=== PATIENT | female | born 1940 | race African-American/Black ===

== ENCOUNTER 2017-01-10 11:43 | Outpatient (CLI) | payer MEDICARE ==
[2016-04-19 12:49] VITALS: BMI 32.4
[~2017-01-10 11:43] MED LIST: DILATRATE-SR40 MG PO; EPITOL200 MG PO; FERROUS SULFAT325 MG PO; FLORAJEN3 CAPS460 MG PO; FUROSEMIDE40 MG PO; HYDRALAZINE HC100 MG PO; KEFLEX250 MG PO; MULTIPLE VITAMI1 TA1 PO; NOVOLOG MIX 70/10 ML SQ; OMEPRAZOLE20 M1 PO; PRAVACHOL20 MG PO; SYNTHROID50 MCG PO; TIAZAC/CARDIZE240 M1 PO; TRADJENTA5 MG PO; TUMS500 MG PO; ULTRAM50 MG PO
== END 2017-01-10 11:55 ==
LOC: D.MAMMO 11:43
DX: Z12.31 Encounter for screening mammogram for malignant neoplasm of breast (principal)

== ENCOUNTER 2017-07-14 18:02 | Emergency (ER) | payer MEDICARE ==
[2016-04-19 12:49] VITALS: BMI 32.4
[2017-07-14 18:30] LABS: BASOPHILS 0.2 % (0-2); EOSINOPHILS 0.7 % (0-7); HEMATOCRIT 34.3 % (36.0-48.0); HEMOGLOBIN 11.4 g/dL (12-16); IMMATURE GRANULOCYTES 0.3 % (0-5); LYMPHOCYTES 14.2 % (15-50); MCH 29.5 pg (26.0-34.0); MCHC 33.2 g/dL (31.0-37.0); MCV 88.6 fL (80.0-100.0); MEAN PLATELET VOLUME 9.9 fL (7.4-10.4); MONOCYTES 7.7 % (2-11); NEUTROPHILS 76.9 % (40-80); RBC 3.87 10x6/uL (4.00-5.40); RDW 13.7 % (11.5-14.5); WBC 10.1 10x3/uL (4.8-10.8)
[2017-07-14 18:31] LABS: PLATELET COUNT 174 10x3/uL (130-400)
[2017-07-14 18:46] LABS: ANION GAP 11.9 mmol/L (8-16); BILIRUBIN - TOTAL 0.2 mg/dL (0.2-1.3); CALCIUM 9.1 mg/dL (8.5-10.1); CARBON DIOXIDE 28.2 mmol/L (21.0-32.0); CREATININE - SERUM 3.7 mg/dL (0.6-1.3); POTASSIUM - SERUM 5.1 mmol/L (3.5-5.1)
[2017-07-14 18:59] LABS: APPEARANCE CLEAR (CLEAR); BILIRUBIN NEGATIVE (NEGATIVE); COLOR YELLOW (YELLOW); GLUCOSE 50 mg/dL (NEGATIVE); KETONE NEGATIVE (NEGATIVE); NITRITE NEGATIVE (NEGATIVE); PROTEIN NEGATIVE (NEGATIVE); UROBILINOGEN NORMAL (NORMAL)
== END 2017-07-14 21:40 | disposition home or self-care (01) ==
LOC: D.ER 18:02
PROVIDERS: Family Medicine
DX: M25.562 Pain in left knee (principal); M54.5 Low back pain; E11.9 Type 2 diabetes mellitus without complications; Z79.4 Long term (current) use of insulin; I12.9 Hypertensive chronic kidney disease with stage 1 through stage 4 chronic kidney disease, or unspecified chronic kidney disease; N18.9 Chronic kidney disease, unspecified

== ENCOUNTER 2017-08-25 14:41 | Emergency (ER) | payer MEDICARE ==
[2016-04-19 12:49] VITALS: BMI 32.4
[2017-08-25 16:10] LABS: BASOPHILS 0.2 % (0-2); EOSINOPHILS 1.4 % (0-7); HEMATOCRIT 32.7 % (36.0-48.0); HEMOGLOBIN 10.8 g/dL (12-16); IMMATURE GRANULOCYTES 0.6 % (0-5); LYMPHOCYTES 12.5 % (15-50); MCH 28.9 pg (26.0-34.0); MCV 87.4 fL (80.0-100.0); MEAN PLATELET VOLUME 8.8 fL (7.4-10.4); MONOCYTES 7.2 % (2-11); NEUTROPHILS 78.1 % (40-80); RBC 3.74 10x6/uL (4.00-5.40); RDW 13.6 % (11.5-14.5); WBC 10.8 10x3/uL (4.8-10.8)
[2017-08-25 16:11] LABS: PLATELET COUNT 225 10x3/uL (130-400)
[2017-08-25 16:32] LABS: ALBUMIN 2.9 g/dL (3.4-5.0); ANION GAP 10.1 mmol/L (8-16); BILIRUBIN - TOTAL 0.29 mg/dL (0.2-1.3); CALCIUM 9.1 mg/dL (8.5-10.1); CARBON DIOXIDE 29.7 mmol/L (21.0-32.0); CREATININE - SERUM 3.6 mg/dL (0.6-1.3); POTASSIUM - SERUM 4.8 mmol/L (3.5-5.1); PROTEIN - SERUM 7.4 g/dL (6.4-8.2)
== END 2017-08-25 17:00 | disposition home or self-care (01) ==
LOC: D.ER 14:41
PROVIDERS: Family Medicine
DX: M79.661 Pain in right lower leg (principal); I87.2 Venous insufficiency (chronic) (peripheral); E11.9 Type 2 diabetes mellitus without complications; Z79.4 Long term (current) use of insulin; I12.9 Hypertensive chronic kidney disease with stage 1 through stage 4 chronic kidney disease, or unspecified chronic kidney disease; N18.9 Chronic kidney disease, unspecified

== ENCOUNTER 2018-01-19 08:58 | Day surgery (SDC) | payer MEDICARE ==
[~2018-01-19] VITALS: Ht 167.6 cm; Wt 86.6 kg
[2018-01-19 09:38] LABS: BASOPHILS 0.2 % (0-2); EOSINOPHILS 2.5 % (0-7); HEMATOCRIT 30.5 % (36.0-48.0); HEMOGLOBIN 10.1 g/dL (12-16); IMMATURE GRANULOCYTES 0.4 % (0-5); LYMPHOCYTES 11.7 % (15-50); MCH 29.2 pg (26.0-34.0); MCHC 33.1 g/dL (31.0-37.0); MCV 88.2 fL (80.0-100.0); MEAN PLATELET VOLUME 9.1 fL (7.4-10.4); MONOCYTES 9.7 % (2-11); NEUTROPHILS 75.5 % (40-80); RBC 3.46 10x6/uL (4.00-5.40); RDW 14.5 % (11.5-14.5); WBC 9.3 10x3/uL (4.8-10.8)
[2018-01-19 09:42] LABS: PLATELET COUNT 140 10x3/uL (130-400)
[2018-01-19 09:55] LABS: ANION GAP 15.8 mmol/L (8-16); CALCIUM 8.7 mg/dL (8.5-10.1); CARBON DIOXIDE 26.8 mmol/L (21.0-32.0); CREATININE - SERUM 4.5 mg/dL (0.6-1.3); POTASSIUM - SERUM 4.6 mmol/L (3.5-5.1)
[2018-01-19 10:58] LABS: APTT 29.1 SECONDS (22.8-39.4); INR 1.11 (0.85-1.17); PROTIME 13.9 SECONDS (11.6-15.0)
[2018-01-19] MEDS ORDERED: VITAMIN D250000 UNIT PO (12:24)
[2018-01-19] MEDS ORDERED: CATAPRES0.1 MG PO (12:24)
[2018-01-19] MEDS ORDERED: LASIX40 MG PO (12:25)
[2018-01-19 12:34] VITALS: BP 145/52; Ht 167.6 cm; Wt 86.6 kg
== END 2018-01-19 14:45 | disposition home or self-care (01) ==
LOC: D.OPS 08:58
PROVIDERS: Surgery
DX: N18.5 Chronic kidney disease, stage 5 (principal); Z01.810 Encounter for preprocedural cardiovascular examination; Z01.811 Encounter for preprocedural respiratory examination; Z01.812 Encounter for preprocedural laboratory examination; Z53.9 Procedure and treatment not carried out, unspecified reason

== ENCOUNTER 2018-01-26 08:16 | Day surgery (SDC) | payer MEDICARE ==
[~2018-01-26] VITALS: Ht 167.6 cm; Wt 83.0 kg
--- NOTE | ~2018-01-26 | OP ---
PATIENT NAME: HONG MORGAN MEDICAL RECORD: [id number] :42 LOCATION:D.[facility] ADMISSION DATE: SURGEON: CLIFF PORRAS MD DATE OF OPERATION: 01/26/2018 PREOPERATIVE DIAGNOSES: Chronic kidney disease V, diabetes and hypertension. PREOPERATIVE DIAGNOSES: Chronic kidney disease V, diabetes and hypertension. OPERATION PERFORMED: Implantation of a left upper arm loop PTFE AV graft. SURGEON: Cliff Porras MD ANESTHESIA: General per LMA plus regional block per TECHNICAL SERVICE ENGINEER. REFERRING PHYSICIAN: Dr. Leena Lou. PREOPERATIVE NOTE: Ms. Morgan is a very nice 77-year-old -[place] female who has worsening renal function as expected to require dialysis relatively soon. She had an AV fistula created in her left arm about a year ago, but it failed, and Dr. Lou has referred her back to me for implantation of an AV graft. She really does not have any vessels very suitable for creation of a fistula. She is right-handed. DESCRIPTION OF PROCEDURE: Under anesthesia in supine position, the patient was prepped and draped in a sterile manner. I applied nitroglycerin ointment and used a Fords drain as a proximal venous tourniquet, examined her with ultrasound and found the vessel to be the basilic vein in the upper half of the arm on the proximal brachial artery, so I went on with plans to implant a loop graft. A longitudinal incision was made over the medial aspect of the upper arm and the proximal brachial artery and basilic vein were exposed and controlled with Silastic loops. I chose a 6-mm diameter standard wall thickness Propaten graft and bevelled one end and prepared for arterial anastomosis. The artery was occluded with Silastic tapes. It was opened and flushed with heparinized saline and the anastomosis then performed into the graft to side of artery with running 6-0 Prolene. The graft was then placed in a very shallow subcutaneous tunnel, which passed distally and anteriorly and then back medially and superiorly until it was back in the original incision. It was shortened and beveled and anastomosed end-to-side to the vein in a similar manner. When the clamps and loops were released, excellent flow was immediately established within the fistula and hemostasis was excellent. The wound was irrigated with saline and then closed without the use of drain approximating subcutaneous tissues with interrupted inverted 3-0 Vicryl and skin of the longer incision was closed with a running 4-0 intracuticular Monocryl. The primary and the 2 counter incisions were then sealed with Dermabond glue and dressed with Maxorb Ag, Tegaderm and Cavilon skin prep. The patient was awakened and returned to the recovery room in stable condition with a functioning AV graft. Good continuous Doppler pulsatile flow was present within the brachial artery at the elbow and in the radial artery at the wrist. The patient will go home today with a prescription for tramadol. She can take 50 mg 1 to 2 p.o. every 4 hours p.r.n. pain and she will come back to see me in my office next week for her first visit, for followup. She will be given a OPERATIVE REPORT [id number] HONG MORGAN sllinh to wear this afternoon and this evening, but she is not to wear it after the anesthetic has worn off, certainly not after tomorrow morning and I want her to regain normal function by resuming fully normal activities as rapidly as possible. She will continue her diabetic renal diet, all of her same home meds, etc. She may shower and wash over her plastic waterproof dressings as desired as well. TRANSINT:[id number] Voice Confirmation ID: [id number] DOCUMENT ID: [id number] CLIFF PORRAS MD at 0847 CC: LEENA LOU [id number] DICTATION DATE: 01/26/18 1407 OPERATIONS SYSTEMS SPECIALIST: 01/26/18 1535 [facility] 01/26/18 [facility] [address] [place] [address]
[~2018-01-26 08:16] MED LIST changes: +CATAPRES0.1 MG PO; +LASIX40 MG PO; +VITAMIN D250000 UNIT PO
[2018-01-26 08:35] LABS: BASOPHILS 0.1 % (0-2); EOSINOPHILS 2.9 % (0-7); HEMATOCRIT 30.4 % (36.0-48.0); HEMOGLOBIN 9.9 g/dL (12-16); IMMATURE GRANULOCYTES 0.3 % (0-5); MCH 28.6 pg (26.0-34.0); MCHC 32.6 g/dL (31.0-37.0); MCV 87.9 fL (80.0-100.0); MEAN PLATELET VOLUME 9.6 fL (7.4-10.4); MONOCYTES 6.2 % (2-11); NEUTROPHILS 75.5 % (40-80); PLATELET COUNT 158 10x3/uL (130-400); RBC 3.46 10x6/uL (4.00-5.40); RDW 14.5 % (11.5-14.5); WBC 9.3 10x3/uL (4.8-10.8)
[2018-01-26 08:43] LABS: APTT 26.6 SECONDS (22.8-39.4); INR 1.06 (0.85-1.17); PROTIME 13.4 SECONDS (11.6-15.0)
[2018-01-26 08:49] LABS: ANION GAP 13.2 mmol/L (8-16); CARBON DIOXIDE 27.5 mmol/L (21.0-32.0); CREATININE - SERUM 4.4 mg/dL (0.6-1.3); POTASSIUM - SERUM 4.7 mmol/L (3.5-5.1)
[2018-01-26 10:36] VITALS: Ht 167.6 cm; Wt 83.0 kg
[2018-01-26] MEDS ORDERED: ULTRAM50 MG PO (13:54)
== END 2018-01-26 16:00 | disposition home or self-care (01) ==
LOC: D.OPS 08:16
PROVIDERS: Surgery
DX: E11.22 Type 2 diabetes mellitus with diabetic chronic kidney disease (principal); I12.0 Hypertensive chronic kidney disease with stage 5 chronic kidney disease or end stage renal disease; N18.5 Chronic kidney disease, stage 5; Z99.2 Dependence on renal dialysis; Z01.812 Encounter for preprocedural laboratory examination

== ENCOUNTER → 2018-11-15 13:34 | Outpatient (CLI) | payer MEDICARE ==
[2018-01-26 10:36] VITALS: BMI 29.6
== END | disposition home or self-care (01) ==
LOC: D.HCCARDIO 13:34
PROVIDERS: ATTEND Internal Medicine Cardiovascular Disease
DX: I34.0 Nonrheumatic mitral (valve) insufficiency (principal)

== ENCOUNTER 2019-03-22 09:37 | Day surgery (SDC) | payer MEDICARE ==
[~2019-03-22] VITALS: Ht 167.6 cm; Wt 81.2 kg
[2019-03-22 10:05] LABS: BASOPHILS 0.2 % (0-2); EOSINOPHILS 1.6 % (0-7); HEMOGLOBIN 10.3 g/dL (12-16); IMMATURE GRANULOCYTES 0.3 % (0-5); LYMPHOCYTES 15.1 % (15-50); MCH 31.3 pg (26.0-34.0); MCHC 34.3 g/dL (31.0-37.0); MCV 91.2 fL (80.0-100.0); MEAN PLATELET VOLUME 9.1 fL (7.4-10.4); MONOCYTES 7.9 % (2-11); NEUTROPHILS 74.9 % (40-80); PLATELET COUNT 161 10x3/uL (130-400); RBC 3.29 10x6/uL (4.00-5.40); RDW 13.4 % (11.5-14.5); WBC 9.3 10x3/uL (4.8-10.8)
[2019-03-22 10:17] LABS: ANION GAP 13.2 mmol/L (8-16); CALCIUM 8.9 mg/dL (8.5-10.1); CARBON DIOXIDE 30.7 mmol/L (21.0-32.0); CREATININE - SERUM 5.1 mg/dL (0.6-1.3); POTASSIUM - SERUM 3.9 mmol/L (3.5-5.1)
[2019-03-22 10:19] LABS: INR 1.03 (0.85-1.17)
[2019-03-22 12:43] VITALS: Ht 167.6 cm; Wt 81.2 kg
--- NOTE | 2019-03-22 17:25 | NUR ---
1636-REC'D FROM RR, AWAKE AND ALERT WITHOUT COMPLAINTS. VSS. LEFT HEMOSPLIT DRESSING CDI. IV PATENT TO RIGHT HAND AT K[facility]. FAMILY MEMBER AT BEDSIDE WITH CL IN EASY REACH.
--- NOTE | 2019-03-22 17:27 | NUR ---
1700-FULL LIQUID TRAY TO ROOM.VSS. NO COMPLAINTS.
--- NOTE | 2019-03-22 17:56 | NUR ---
1745-DISCHARGE CRITERIA MET. REVIEWED DISCHARGE INSTRUCTIONS WITH PT AND FAMILY MEMBER AT BEDSIDE.VERBALIZED UNDERSTANDING. ESCORTED OUT VIA W/C WITH FAMILY TO DRIVE HOME
--- NOTE | 2019-03-26 10:48 | OP ---
PATIENT NAME: HONG MORGAN MEDICAL RECORD: [id number] :42 LOCATION:D.[facility] ADMISSION DATE: SURGEON: CLIFF PORRAS MD DATE OF OPERATION: 03/22/2019 REFERRING PHYSICIANS: Dr. Leena Lou, Dr. Boucher, and Dr. Damon. PREOPERATIVE DIAGNOSES: End-stage renal disease and dependence on hemodialysis and thrombosed left arm AV graft. OPERATION PERFORMED: Implantation of a right internal jugular HemoSplit tunneled dialysis catheter performed with fluoroscopic as well as ultrasound guidance. SURGEON: Cliff Porras MD ANESTHESIA: General with LMA per RETAIL ADVISOR. PREOPERATIVE NOTE: Ms. Hong Morgan is a 78-year-old -[place] female from [place], who has been on dialysis now for about 2 years. She began dialysis with a left arm PTFE AV graft, left proximal brachial artery to proximal basilic vein loop. This thrombosed and required mechanical thrombolysis and a stent placed in a venous anastomotic stenosis back in October of this year and on Monday of this week, she again thrombosed her graft and was treated by Dr. Boucher, who performed a mechanical thrombolysis with angioplasty of 70% in-stent recurrence there at the venous outflow or venous anastomosis. The patient is not on anticoagulant medications. She dialyzed Monday of this week and then when she presented for dialysis today, Monday, her graft had again thrombosed. She is brought to the operating room at this time to implant a tunneled dialysis catheter and then she can have dialysis Monday and Monday or Monday, next Monday is Day and can be scheduled for another procedure at [facility]. 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 DESCRIPTION OF PROCEDURE: Under general anesthesia in supine position, the patient was prepped and draped in sterile manner. I used ultrasound to identify the internal jugular veins and identify the optimal site for vascular access. I found the right internal jugular vein to be quite generous. It was fairly turgid or distended as was the external jugular vein on the right. It was collapsible with compression and there were no internal sonographic abnormalities, clots, etc. The images on ultrasound were recorded on PACS. The images were interpreted in real time by the operating surgeon. The internal jugular vein was accessed then percutaneously with micropuncture technique and continuous ultrasound imaging again with image documentation. A guidewire was inserted then and a catheter exchange performed under fluoroscopy. Dilators were passed and finally a dilator peel-away introducer was inserted. I chose a 19-cm HemoSplit dialysis catheter. This was inserted through a subclavicular incision and pulled through a subcutaneous tunnel up to the neck where it was then inserted through the peel-away sheath. Under fluoroscopy, the tip of this catheter was positioned near the junction of the right atrium and inferior vena cava. Both lumens of the catheter were accessed and aspirated. Free return of blood from each was confirmed. They were then flushed with OPERATIVE REPORT [id number] HONG MORGAN saline and then heparin locked, clamped, and capped. The catheter was sutured to the skin near the entry site with 2-0 Prolene and a dressing of chlorhexidine Biopatch and standard CVL adhesive dressing with Cavilon skin prep was applied. The cervical incision was closed with interrupted inverted 3-0 Vicryl and Dermabond glue and dressed with Maxorb Ag, Tegaderm, and Cavilon skin prep. The patient was then awakened and in stable condition taken back to the recovery room. PLAN: Ms. Morgan will go home today and continue her usual diabetic renal diet and medications, activities, etc. She normally dialyzes on Monday, Monday, Monday at [facility]. For now, she is scheduled for dialysis tomorrow at 10:30 a.m. at [facility] and then her next dialysis I assume will be on Monday, probably back at [facility]. She will be scheduled for a repeat mechanical thrombolysis procedure at [facility] next week as well or the week after. TRANSINT:[id number] Voice Confirmation ID: [id number] DOCUMENT ID: [id number] CLIFF PORRAS MD at 1048 CC: LEX BOUCHER SHARMA, MUKESH KUMAR MD and LEENA [id number] DICTATION DATE: 03/22/191727 BUSINESS PROCESS COORDINATOR: 03/22/190 [facility] 03/22/19 [facility] [address] [place] [address]
== END 2019-03-22 17:45 | disposition home or self-care (01) ==
LOC: D.OPS 09:37
PROVIDERS: ATTEND Internal Medicine
DX: T82.868A Thrombosis due to vascular prosthetic devices, implants and grafts, initial encounter (principal); Y83.9 Surgical procedure, unspecified as the cause of abnormal reaction of the patient, or of later complication, without mention of misadventure at the time of the procedure; E11.22 Type 2 diabetes mellitus with diabetic chronic kidney disease; I12.0 Hypertensive chronic kidney disease with stage 5 chronic kidney disease or end stage renal disease; N18.6 End stage renal disease; Z99.2 Dependence on renal dialysis

== ENCOUNTER 2019-05-09 09:39 | Outpatient (CLI) | payer MEDICARE ==
[~2019-05-09] VITALS: Ht 167.6 cm; Wt 76.7 kg
[~2019-05-09 09:39] MED LIST changes: +BAYER CHEWABLE81 MG PO; +COUMADIN1 MG
[2019-05-09 11:28] VITALS: Ht 167.6 cm; Wt 76.7 kg
--- NOTE | 2019-05-09 14:49 | NUR ---
1430 BLOOD TRANSFUSION COMPLETED. DOING WELL. NO ADVERSE REACTION NOTED. IV REMOVED WITH CATHALON INTACT. PRESS HELD TO STOP BLEEDING. COVERED WITH BANDAID. ALL DC INSTRUCTIONS GIVEN. VOICES UNDERSTANDING. ASSISTED TO WC AND TAKEN DOWN TO CAR WITH COUSIN. ADVISED TO CALL OR COME BACK IF ANY PROBLEMS.
== END 2019-05-09 14:30 | disposition home or self-care (01) ==
LOC: D.OPS 09:39
PROVIDERS: ATTEND Internal Medicine Nephrology
DX: D64.9 Anemia, unspecified (principal)

== ENCOUNTER → 2019-05-13 12:31 | Outpatient (CLI) | payer MEDICARE ==
[2019-05-13 12:51] LABS: BASOPHILS 0.3 % (0-2); EOSINOPHILS 1.7 % (0-7); HEMATOCRIT 30.2 % (36.0-48.0); HEMOGLOBIN 9.8 g/dL (12-16); IMMATURE GRANULOCYTES 0.2 % (0-5); MCH 31.3 pg (26.0-34.0); MCHC 32.5 g/dL (31.0-37.0); MCV 96.5 fL (80.0-100.0); MEAN PLATELET VOLUME 10.1 fL (7.4-10.4); NEUTROPHILS 75.8 % (40-80); PLATELET COUNT 202 10x3/uL (130-400); RBC 3.13 10x6/uL (4.00-5.40); RDW 15.9 % (11.5-14.5)
[2019-05-13 13:01] LABS: INR 1.04 (0.85-1.17); PROTIME 13.1 SECONDS (11.6-15.0)
== END | disposition home or self-care (01) ==
LOC: D.LABREF 12:31
PROVIDERS: ATTEND Surgery
DX: N18.6 End stage renal disease (principal); Z79.01 Long term (current) use of anticoagulants

== ENCOUNTER → 2019-05-16 09:24 | Outpatient (CLI) | payer MEDICARE | END | disposition home or self-care (01) | LOC: D.US 09:24 | PROVIDERS: ATTEND Radiology Diagnostic Radiology | DX: D64.9 Anemia, unspecified (principal); R31.9 Hematuria, unspecified ==

== ENCOUNTER → 2019-06-18 09:11 | Outpatient (CLI) | payer MEDICARE | END | disposition home or self-care (01) | LOC: D.RAD 08:49 | PROVIDERS: ATTEND Internal Medicine Nephrology | DX: R06.02 Shortness of breath (principal); R05 Cough ==

== ENCOUNTER → 2019-12-05 09:58 | Outpatient (CLI) | payer MEDICARE | END | disposition home or self-care (01) | LOC: D.HCCECHO 09:58 | PROVIDERS: ATTEND Internal Medicine Cardiovascular Disease | DX: I10 Essential (primary) hypertension (principal) ==

== ENCOUNTER → 2021-01-05 09:30 | Outpatient (CLI) | payer MEDICARE | END | disposition home or self-care (01) | LOC: D.HCCECHO 09:30 | PROVIDERS: ATTEND Internal Medicine Cardiovascular Disease | DX: I10 Essential (primary) hypertension (principal) ==